=== PATIENT | male | born 1970 | race Caucasian/White ===

== ENCOUNTER 2019-12-17 13:33 | Emergency (ER) | payer OTHER ==
[~2019-12-17] VITALS: Ht 175.3 cm; Wt 108.9 kg
[2019-12-17] MEDS ORDERED: TRAZODONE HCL50 MG PO (13:50)
[2019-12-17] MEDS ORDERED: BLOOD PRESSURE MED PO (13:50)
[2019-12-17] MEDS ORDERED: FAMOTIDINE 20 M20 MG PO (13:51)
[2019-12-17 14:24] LABS: HEMATOCRIT 44.8 % (42.0-52.0); MCH 25.2 pg (26.0-34.0); MCHC 33.5 g/dL (28.0-37.0); MCV 75.3 fL (80.0-100.0); NUCLEATED RBCS 0 /100WBC; PLATELET COUNT* 254 thou/uL (150-400); RBC 5.95 mil/uL (4.50-6.00); RDW-CV 15.3 % (10.5-14.5); WBC 14.6 thou/uL (4.0-11.0)
[2019-12-17 14:37] LABS: CREATININE 2.1 mg/dL (0.6-1.3); POTASSIUM 4.1 mmol/L (3.5-5.1)
[2019-12-17 14:42] LABS: ALBUMIN 4.2 g/dL (3.4-5.0); TOTAL PROTEIN 8.2 g/dL (6.4-8.2)
[2019-12-17 15:06] LABS: ABSOLUTE MONOCYTES 0.1 thou/uL (0.0-1.2); ABSOLUTE NEUTROPHILS 12.4 thou/uL (1.6-8.1); PLATELET ESTIMATE ADEQUATE
[2019-12-17 15:50] LABS: URINE BLOOD 3+ (Negative); URINE CLARITY CLEAR; URINE COLOR YELLOW; URINE GLUCOSE-RANDOM NEGATIVE (Negative); URINE KETONES 2+ (Negative); URINE LEUKOCYTES-REFLEX NEGATIVE (Negative); URINE NITRITE-REFLEX NEGATIVE (Negative); URINE PROTEIN 1+ (Negative); URINE SPECIFIC GRAVITY 1.025 (1.005-1.030); URINE UROBILINOGEN 0.2 E.U./dl (0.2-1.0)
[2019-12-17 15:56] LABS: ICTOTEST (BILI CONFIRMATORY) Negative (Negative); URINE BILIRUBIN 1+ (Negative)
[2019-12-17 15:57] LABS: MUCUS 0-3 Light strn/LPF (None Seen); SQUAMOUS 0-3 Few /LPF (0-3); URINE RBC >20 Many /HPF (0-2); URINE WBC-REFLEX 0-5 Rare /HPF (0-5)
[2019-12-17 15:58] LABS: BACTERIA-REFLEX None Seen /HPF (None Seen); CRYSTALS None Seen /LPF (None Seen); HYALINE CASTS 0-3 Few /LPF (None Seen)
[2019-12-17 18:20] VITALS: BP 151/85
== END 2019-12-17 18:20 | disposition short-term general hospital (02) ==
LOC: M.ERS 13:33
PROVIDERS: Physician Assistant
DX: N17.9 Acute kidney failure, unspecified (principal); N20.0 Calculus of kidney; R19.7 Diarrhea, unspecified; I10 Essential (primary) hypertension; Z20.828 Contact with and (suspected) exposure to other viral communicable diseases; Z88.0 Allergy status to penicillin